=== PATIENT | female | born 1990 | race Caucasian/White ===

== ENCOUNTER 2017-05-20 18:03 | Emergency (ER) | payer BC, MEDICAID ==
[~2017-05-20] VITALS: Ht 162.6 cm; Wt 59.1 kg
[~2017-05-20 18:03] MED LIST: ACET50TA PO; AZITHROMYCIN; CEFT500T3 PO; IBUP80TA PO; RHINSUS; TUMS1000 PO; VITAPRTA PO; ZANTTAB9 PO
--- NOTE | 2017-05-20 21:30 | REPUSA ---
Clinical history: Pain. Findings: Real-time transabdominal and transvaginal ultrasound images of the pelvis were obtained. Th ere is a single live intrauterine . The crown rump length measures 3.2 cm. heart rate measures 168 bpm. There is no evidence of a subchorionic hemorrhage. The uterus and adnexa appear jess ssly unremarkable. There is no evidence of free fluid. Impression: Single live intrauterine measuring 10 weeks 1 day, with a heart rate of 1 68 bpm. Estimated due date is 12/15/2017.
[2017-05-20 22:35] VITALS: BP 120/81
== END 2017-05-20 22:36 | disposition home or self-care (01) ==
LOC: M ED 18:03
DX: O26.891 Other specified pregnancy related conditions, first trimester (principal); R10.9 Unspecified abdominal pain; O99.511 Diseases of the respiratory system complicating pregnancy, first trimester; J45.909 Unspecified asthma, uncomplicated; Z3A.10 10 weeks gestation of pregnancy; Z88.2 Allergy status to sulfonamides; Z88.8 Allergy status to other drugs, medicaments and biological substances; Z88.0 Allergy status to penicillin; Z87.19 Personal history of other diseases of the digestive system

== ENCOUNTER → 2018-05-13 | Outpatient (CLI) | payer OTHER | LOC: M WHC 11:07 | DX: Z34.90 Encounter for supervision of normal pregnancy, unspecified, unspecified trimester (principal); Z36.89 Encounter for other specified antenatal screening; Z3A.12 12 weeks gestation of pregnancy ==

== ENCOUNTER → 2018-07-03 | Outpatient (CLI) | payer OTHER | LOC: M WHC 12:49 | DX: Z33.1 Pregnant state, incidental (principal); Z3A.19 19 weeks gestation of pregnancy | CPT/HCPCS: 76811 ==

== ENCOUNTER → 2018-08-07 | Outpatient (CLI) | payer OTHER ==
[~2018-08-07] MED LIST changes: -ACET50TA PO; +MAPA500T17 PO
--- NOTE | 2018-08-08 03:10 | REP ---
Clinical: Anatomical evaluation. Comparison: 07/03/2018 . Findings: Examination demonstrates a single live intrauterine in cephalic presentation. motion is identified by technologist. Placenta is noted anterior and grade grade zero without evidence for placenta previa or abruption. Amniotic fluid volume is normal. Cervix measures 5.6 cm in length and appears closed. No evidence for nuchal cord. Gestational age by LMP 24 weeks 6 days with BROOKS four 12/25 . Gestational age by current measurements 24 weeks 3 days with BROOKS 11/24/2018 . FHR equals 150 beats per minute. Estimated weight 743 grams ( 42nd percentile). Anatomical assessment demonstrates normal structures including four-chamber heart/ventricular outflow tracts, stomach, kidneys/bladder, and spine. Impression: Single live intrauterine in cephalic presentation demonstrating appropriate interval growth. In conjunction with prior examination anatomical assessment is complete and normal. Electronically Signed by Ambrosio Liriano MD 08/08/2018 03:02 A
== END ==
LOC: M WHC 09:25
PROVIDERS: ATTEND Nurse Practitioner Women's Health
DX: Z34.92 Encounter for supervision of normal pregnancy, unspecified, second trimester (principal); Z3A.24 24 weeks gestation of pregnancy

== ENCOUNTER → 2018-10-28 | Outpatient (REF) | payer OTHER ==
[~2018-10-28] MED LIST changes: -MAPA500T17 PO; +MAPA500T2 PO
== END ==
LOC: M LAB REF 14:13
PROVIDERS: ATTEND Nurse Practitioner Women's Health
DX: Z34.83 Encounter for supervision of other normal pregnancy, third trimester (principal); Z3A.00 Weeks of gestation of pregnancy not specified

== ENCOUNTER → 2021-06-28 | Outpatient (CLI) | payer OTHER ==
[~2021-06-28] MED LIST changes: +VITMTA PO; +ZOLO100T PO
== END ==
LOC: M LABSMTC 11:49
PROVIDERS: ATTEND Anesthesiology
DX: Z01.818 Encounter for other preprocedural examination (principal); Z11.52 Encounter for screening for COVID-19

== ENCOUNTER 2021-06-29 11:40 | Day surgery (SDC) | payer OTHER ==
[~2021-06-29] VITALS: Ht 165.1 cm; Wt 70.7 kg
[~2021-06-29 11:40] MED LIST changes: +LIDOCAINE 1% MDV 20ML VIAL SQ PRN; +LR 1,000 ML IV ONE
--- OUTSIDE RECORDS SUMMARY | 2021-06-29 11:51 | CCD | Continuity of Care Document ---
Author Author Silvia Alan Organization Unknown Address Unknown Phone [phone] Problems Description No Information Available Social History Type Date Description Comments Sex Unknown Tobacco Use Start: Unknown Never Smoked Cigarettes ETOH Use Non-smoker, Occasional Drinker, Non-drug User Tobacco Use Start: Unknown Patient has never smoked Smoking Status Reviewed: 02/24/21 Patient has never smoked Exercise Type/Frequency Does not exercise Allergies and adverse reactions Active Allergies Criticality Reaction | Severity Comments Date Loracarbef Unable to assess criticality 02/24/2021 Bactrim Unable to assess criticality 02/24/2021 Augmentin Unable to assess criticality 02/24/2021 Latex Unable to assess criticality 02/24/2021 Medications Active Medications SIG Qnty Indications Ordering Provide r Date Sertraline HCL 100mg Tablets Daily Unknown Immunizations Description No Information Available Vital Signs Date Vital Result Comment 02/24/2021 8:47am BP Systolic 112 mmHg BP Diastolic 68 mmHg Height 65 inches 5'5" Weight 151.00 lb BMI (Body Mass Index) 25.1 kg/m2 BSA (Body Surface Area) 1.76 m2 Results Test Acquired Date Facility Test Result H/L Range Note Thinprep W/Reflex HR HPV If Asc-US 02/24/2021 [facility] TP Reflex HPV ASCUS Normal Normal 1 TP Reflex HPV ASCUS SEE IMAGE 1 SPECIME N PART A. 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 SPECIMEN ADEQUACY:Satisfactory for evaluation. Endocervical/transformation zone component present. Procedures Date Code Description Status 06/19/2021 64135 Endometrial Biopsy W/O Cervical Dilation Completed 03/16/2021 51295 Tubal Ligation (Laparoscopic) W/ Fulguration Completed 03/16/2021 05216 Hysteroscopy, With Endometrial A blation (Any Method) Completed 03/16/2021 78726 Remove Contraceptive Capsule Com pleted 03/08/2021 68904 Endometrial Biopsy W/O Cervical Dilation Completed 02/24/2021 36579 Office/Outpatient New Moderate M DM 45-59 Minutes Completed Medical Devices Description No Information Available Encounters Type Date Location Provider Dx Diagnosis Office Visit 02/24/2021 9:15a [facility] [employer] Rosana Mireles MD N9 2.1 Excessive and frequent menstruation with irregular cycle N94.4 Primary dysmenorrhea Z30.8 Encounter for other contrace ptive management Assessments Date Code Description Provider 02/24/2021 N92.1 Excessive and frequent menstruat ion with irregular cycle Rosana Mireles MD 02/24/2021 N94.4 Primary dysmenorrhea Isis Mireles MD 02/24/2021 Z30.8 Encounter for other contraceptiv e management Rosana Mireles MD Plan of Treatment Future Appointment(s):* 03/16/2022 8:45 am - Rosana Mireles MD at [facility] 02/24/2021 - Rosana Mireles MD* N92.1 Excessive and frequent menstruation with irregular cycle * N94.4 Primary dysmenorrhea * Z30.8 Encounter for other contraceptive management Functional Status Description No Information Available Mental Status Description No Information Available Referrals Description No Information Available
--- OUTSIDE RECORDS SUMMARY | 2021-06-29 11:51 | CCD | Continuity of Care Document ---
Author Author Silvia VERDE MD Organization Unknown Address [address] [place] [id number] Phone [phone] Problems Description No Information Available Social History Type Date Description Comments Sex Unknown Tobacco Use Start: Unknown Never Smoked Cigarettes ETOH Use Non-smoker, Occasional Drinker, Non-drug User Tobacco Use Start: Unknown Patient has never smoked Smoking Status Reviewed: 06/19/21 Patient has never smoked Exercise Type/Frequency Does [...] N PART A. Cervical, Endocervical, ThinPrep Pap ([facility] Tender) CYTOLOGY HX-------- Date of Last Menstrual Period: 02/08/21 FINAL DIAGNOSIS---- INTERPRETATION: Negative for Intraepithelial Lesion or Malignancy. SPECIMEN ADEQUACY:Satisfactory for evaluation. Endocervical/transformation zone component present. Procedures Date Code Description Status 06/19/2021 19062 Endometrial Biopsy W/O Cervical Dilation Completed 03/16/2021 68949 Tubal Ligation (Laparoscopic) W/ Fulguration Completed 03/16/2021 52863 Hysteroscopy, With Endometrial A blation (Any Method) Completed 03/16/2021 35101 Remove Contraceptive Capsule Com pleted 03/08/2021 79775 Endometrial Biopsy W/O Cervical Dilation Completed 02/24/2021 58816 Office/Outpatient New Moderate M DM 45-59 Minutes Completed Medical Devices Description No Information Available Encounters Type Date Location Provider Dx Diagnosis Office Visit 02/24/2021 9:15a [facility] [place] Rosana Verde MD N9 2.1 Excessive and frequent menstruation with irregular cycle N94.4 Primary dysmenorrhea Z30.8 Encounter for other contrace ptive management Assessments Date Code Description Provider 06/19/2021 N92.1 Excessive and frequent menstruat ion with irregular cycle Rosana Verde MD 06/19/2021 Z32.02 Encounter for test, re sult negative Nurse Schedule 06/19/2021 N94.4 Primary dysmenorrhea Isis Verde MD 02/24/2021 N92.1 Excessive and frequent menstruat ion with irregular cycle Rosana Verde MD 02/24/2021 N94.4 Primary dysmenorrhea Isis Verde MD 02/24/2021 Z30.8 Encounter for other contraceptiv e management Rosana Verde MD Plan of Treatment Future Appointment(s):* 06/29/2021 11:00 am - Rosana Verde MD at [facility] [place] * 2021 11:30 am - Rosana Verde MD at [facility] [place] * 03/16/2022 8:45 am - Rosana Verde MD at [facility] [place] 06/19/2021 - Rosana Verde MD* N92.1 Excessive and frequent menstruation with irregular cycle* New Labs:* Gynecologic Biopsy, Ordered: 06/19/21 * N94.4 Primary dysmenorrhea Functional Status Description No Information Available Mental Status Description No Information Available Referrals Description No Information Available
--- OUTSIDE RECORDS SUMMARY | 2021-06-29 11:51 | CCD ---
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 Name Role Phone Yulia VERDE MD Unavailable Unavailable Yulia VERDE MD Unavailable Unavailable Yulia VERDE MD Unavailable Unavailable Yulia VERDE MD Unavailable Unavailable Yulia VERDE MD Unavailable Unavailable Yulia VERDE MD Unavailable Unavailable Yulia VERDE MD Unavailable Unavailable Yulia VERDE MD Unavailable Unavailable Yulia VERDE MD Unavailable Unavailable Yulia VERDE MD Unavailable Unavailable Yulia VERDE MD Unavailable Unavailable Yulia VERDE MD Unavailable Unavailable Yulia VERDE MD Unavailable Unavailable Yulia VERDE MD Unavailable Unavailable Yulia VERDE MD Unavailable Unavailable Yulia VERDE MD Unavailable Unavailable Yulia VERDE MD Unavailable Unavailable VERDE, L BROOKS SIDHU Unavailable Unavailable VERDE, L BROOKS SIDHU Unavailable Unavailable VERDE, L BROOKS SIDHU Unavailable Unavailable VERDE, L BROOKS SIDHU Unavailable Unavailable VERDE, L BROOKS SIDHU Unavailable Unavailable VERDE, L BROOKS SIDHU Unavailable Unavailable VERDE, L BROOKS SIDHU Unavailable Unavailable VERDE, L BROOKS SIDHU Unavailable Unavailable VERDE, L BROOKS SIDHU Unavailable Unavailable VERDE, L BROOKS SIDHU Unavailable Unavailable VERDE, L BROOKS SIDHU Unavailable Unavailable VERDE, L BROOKS SIDHU Unavailable Unavailable VERDE, L BROOKS SIDHU Unavailable Unavailable VERDE, L BROOKS SIDHU Unavailable Unavailable VERDE, L BROOKS SIDHU Unavailable Unavailable VERDE, L BROOKS SIDHU Unavailable Unavailable VERDE, L BROOKS SIDHU Unavailable Unavailable VERDE, L BROOKS SIDHU Unavailable Unavailable VERDE, L BROOKS SIDHU Unavailable Unavailable VERDE, L BROOKS SIDHU Unavailable Unavailable VERDE, L BROOKS SIDHU Unavailable Unavailable VERDE, L BROOKS SIDHU Unavailable Unavailable VERDE, L BROOKS SIDHU Unavailable Unavailable VERDE, L BROOKS SIDHU Unavailable Unavailable VERDE, L BROOKS SIDHU Unavailable Unavailable VERDE, L BROOKS SIDHU Unavailable Unavailable VERDE, L BROOKS SIDHU Unavailable Unavailable VERDE, L BROOKS SIDHU Unavailable Unavailable Bartoszewski, Mayra Ara MS, RPA-C Unavailable Unav ailable Bartoszewski, Mayra Ara MS, RPA-C Unavailable Unav ailable Bartoszewski, Mayra Ara MS, RPA-C Unavailable Unav ailable Bartoszewski, Mayra Ara MS, RPA-C Unavailable Unav ailable Bartoszewski, Mayra Ara MS, RPA-C Unavailable Unav ailable Bartoszewski, Mayra Ara MS, RPA-C Unavailable Unav ailable Bartoszewski, Mayra Ara MS, RPA-C Unavailable Unav ailable Bartoszewski, Mayra Ara MS, RPA-C Unavailable Unav ailable Bartoszewski, Mayra Ara MS, RPA-C Unavailable Unav ailable Bartoszewski, Mayra Ara MS, RPA-C Unavailable Unav ailable Bartoszewski, Mayra Ara MS, RPA-C Unavailable Unav ailable Bartoszewski, Mayra Ara MS, RPA-C Unavailable Unav ailable Bartoszewski, Mayra Ara MS, RPA-C Unavailable Unav ailable Bartoszewski, Mayra Ara MS, RPA-C Unavailable Unav ailable Bartoszewski, Mayra Ara MS, RPA-C Unavailable Unav ailable Bartoszewski, Mayra Ara MS, RPA-C Unavailable Unav ailable Bartoszewski, Mayra Ara MS, RPA-C Unavailable Unav ailable Bartoszewski, Mayra Ara MS, RPA-C Unavailable Unav ailable Bartoszewski, Mayra Ara MS, RPA-C Unavailable Unav ailable Bartoszewski, Mayra Ara MS, RPA-C Unavailable Unav ailable Bartoszewski, Mayra Ara MS, RPA-C Unavailable Unav ailable Bartoszewski, Mayra Ara MS, RPA-C Unavailable Unav ailable Bartoszewski, Mayra Ara MS, RPA-C Unavailable Unav ailable Bartoszewski, Mayra Ara MS, RPA-C Unavailable Unav ailable Bartoszewski, Mayra Ara MS, RPA-C Unavailable Unav ailable Bartoszewski, Mayra Ara MS, RPA-C Unavailable Unav ailable Bartoszewski, Mayra Ara MS, RPA-C Unavailable Unav ailable Bartoszewski, Mayra Ara MS, RPA-C Unavailable Unav ailable Bartoszewski, Mayra Ara MS, RPA-C Unavailable Unav ailable Bartoszewski, Mayra Ara MS, RPA-C Unavailable Unav ailable Bartoszewski, Mayra Ara MS, RPA-C Unavailable Unav ailable Bartoszewski, Mayra Ara MS, RPA-C Unavailable Unav ailable Bartoszewski, Mayra Ara MS, RPA-C Unavailable Unav ailable Bartoszewski, Mayra Ara MS, RPA-C Unavailable Unav ailable Bartoszewski, Mayra Ara MS, RPA-C Unavailable Unav ailable Bartoszewski, Mayra Ara MS, RPA-C Unavailable Unav ailable Bartoszewski, Mayra Ara MS, RPA-C Unavailable Unav ailable Bartoszewski, Mayra Ara MS, RPA-C Unavailable Unav ailable Bartoszewski, Mayra Ara MS, RPA-C Unavailable Unav ailable Bartoszewski, Mayra Ara MS, RPA-C Unavailable Unav ailable Bartoszewski, Mayra Ara MS, RPA-C Unavailable Unav ailable Bartoszewski, Mayra Ara MS, RPA-C Unavailable Unav ailable Bartoszewski, Mayra Ara MS, RPA-C Unavailable Unav ailable Bartoszewski, Mayra Ara MS, RPA-C Unavailable Unav ailable Bartoszewski, Mayra Ara MS, RPA-C Unavailable Unav ailable Bartoszewski, Mayra Ara MS, RPA-C Unavailable Unav ailable Bartoszewski, Mayra Ara MS, RPA-C Unavailable Unav ailable Bartoszewski, Mayra Ara MS, RPA-C Unavailable Unav ailable Bartoszewski, Mayra Ara MS, RPA-C Unavailable Unav ailable Bartoszewski, Mayra Ara MS, RPA-C Unavailable Unav ailable Bartoszewski, Mayra Ara MS, RPA-C Unavailable Unav ailable Bartoszewski, Mayra Ara MS, RPA-C Unavailable Unav ailable Bartoszewski, Mayra Ara MS, RPA-C Unavailable Unav ailable Bartoszewski, Mayra Ara MS, RPA-C Unavailable Unav ailable Bartoszewski, Mayra Ara MS, RPA-C Unavailable Unav ailable Bartoszewski, Mayra Ara MS, RPA-C Unavailable Unav ailable Bartoszewski, Mayra Ara MS, RPA-C Unavailable Unav ailable Bartoszewski, Mayra Ara MS, RPA-C Unavailable Unav ailable Bartoszewski, Mayra Ara MS, RPA-C Unavailable Unav ailable Bartoszewski, Mayra Ara MS, RPA-C Unavailable Unav ailable OBEN T MEHDI SIDHU Unavailable Unavailable OBAPARNA T MEHDI SIDHU Unavailable Unavailable OBYoung BRAUN MD Unavailable Unavailable OBYoung BRAUN MD Unavailable Unavailable OBEN, T MEHDI MD Unavailable Unavailable OBEN, T MEHDI MD Unavailable Unavailable OBEN, T MEHDI MD Unavailable Unavailable OBEN, T MEHDI MD Unavailable Unavailable OBEN, T MEHDI MD Unavailable Unavailable OBEN, T MEHDI MD Unavailable Unavailable OBEN, T MEHDI MD Unavailable Unavailable OBEN, T MEHDI MD Unavailable Unavailable OBEN, T MEHDI MD Unavailable Unavailable OBEN, T MEHDI MD Unavailable Unavailable OBEN, T MEHDI MD Unavailable Unavailable OBEN, T MEHDI MD Unavailable Unavailable OBEN, T MEHDI MD Unavailable Unavailable OBEN, T MEHDI MD Unavailable Unavailable OBEN, T MEHDI MD Unavailable Unavailable OBEN, T MEHDI MD Unavailable Unavailable OBEN, T MEHDI MD Unavailable Unavailable OBEN, T MEHDI MD Unavailable Unavailable OBEN, T MEHDI MD Unavailable Unavailable OBEN, T MEHDI MD Unavailable Unavailable OBEN, T MEHDI MD Unavailable Unavailable OBEN, T MEHDI MD Unavailable Unavailable OBEN, T MEHDI MD Unavailable Unavailable OBEN, T MEHDI MD Unavailable Unavailable OBEN, T MEHDI MD Unavailable Unavailable OBEN, T MEHDI MD Unavailable Unavailable OBEN, T MEHDI MD Unavailable Unavailable OBEN, T MEHDI MD Unavailable Unavailable OBEN, T MEHDI MD Unavailable Unavailable OBEN, T MEHDI MD Unavailable Unavailable OBEN, T MEHDI MD Unavailable Unavailable OBEN, T MEHDI MD Unavailable Unavailable OBEN, T MHEDI MD Unavailable Unavailable OBEN, T MEHDI MD Unavailable Unavailable OBEN, T MEHDI MD Unavailable Unavailable OBEN, T MEHDI MD Unavailable Unavailable OBEN, T MEHDI MD Unavailable Unavailable OBEN, T MEHDI MD Unavailable Unavailable OBEN, T MEHDI MD Unavailable Unavailable OBEN, T MEHDI MD Unavailable Unavailable OBEN, T MEHDI MD Unavailable Unavailable OBEN, T MEHDI MD Unavailable Unavailable OBEN, T MEHDI MD Unavailable Unavailable OBEN, T MEHDI MD Unavailable Unavailable OBEN, T MEHDI MD Unavailable Unavailable OBEN, T MEHDI MD Unavailable Unavailable OBEN, T MEHDI MD Unavailable Unavailable OBEN, T MEHDI MD Unavailable Unavailable OBEN, T MEHDI MD Unavailable Unavailable OBEN, T MEHDI MD Unavailable Unavailable OBEN, T MEHDI MD Unavailable Unavailable OBEN, T MEHDI MD Unavailable Unavailable OBEN, T MEHDI MD Unavailable Unavailable OBEN, T MEHDI MD Unavailable Unavailable Mannie Fleming MD Unavailable Unavailable Mannie Fleming MD Unavailable Unavailable Mannie Fleming MD Unavailable Unavailable Mannie Fleming MD Unavailable Unavailable Mannie Fleming MD Unavailable Unavailable Mannie Fleming MD Unavailable Unavailable Mannie Fleming MD Unavailable Unavailable Mannie Fleming MD Unavailable Unavailable Mannie Fleming MD Unavailable Unavailable Mannie Fleming MD Unavailable Unavailable Mannie Fleming MD Unavailable Unavailable Mannie Fleming MD Unavailable Unavailable Mannie Fleming MD Unavailable Unavailable Mannie Fleming MD Unavailable Unavailable Mannie Fleming MD Unavailable Unavailable Mannie Fleming MD Unavailable Unavailable Mannie Fleming MD Unavailable Unavailable Mannie Fleming MD Unavailable Unavailable Mannie Fleming MD Unavailable Unavailable Mannie Fleming MD Unavailable Unavailable Mannie Fleming MD Unavailable Unavailable Mannie Fleming MD Unavailable Unavailable Mannie Fleming MD Unavailable Unavailable Mannie Fleming MD Unavailable Unavailable Mannie Fleming MD Unavailable Unavailable Mannie Fleming MD Unavailable Unavailable Mannie Fleming MD Unavailable Unavailable Mannie Fleming MD Unavailable Unavailable Mannie Fleming MD Unavailable Unavailable Mannie Fleming MD Unavailable Unavailable Mannie Fleming MD Unavailable Unavailable Mannie Fleming MD Unavailable Unavailable Mannie Fleming MD Unavailable Unavailable Mannie Fleming MD Unavailable Unavailable Mannie Fleming MD Unavailable Unavailable Mannie Fleming MD Unavailable Unavailable Mannie Fleming MD Unavailable Unavailable Mannie Fleming MD Unavailable Unavailable Mannie Fleming MD Unavailable Unavailable Mannie Fleming MD Unavailable Unavailable Mannie Fleming MD Unavailable Unavailable Mannie Fleming MD Unavailable Unavailable Mannie Fleming MD Unavailable Unavailable Mannie Fleming MD Unavailable Unavailable Mannie Fleming MD Unavailable Unavailable Mannie Fleming MD Unavailable Unavailable Mannie Fleming MD Unavailable Unavailable Mannie Fleming MD Unavailable Unavailable Mannie Fleming MD Unavailable Unavailable Mannie Fleming MD Unavailable Unavailable Mannie Fleming MD Unavailable Unavailable Mannie Fleming MD Unavailable Unavailable Mannie Fleming MD Unavailable Unavailable Mannie Fleming MD Unavailable Unavailable Mannie Fleming MD Unavailable Unavailable Mannie Fleming MD Unavailable Unavailable Mannie Fleming MD Unavailable Unavailable Mannie Fleming MD Unavailable Unavailable Mannie Fleming MD Unavailable Unavailable Mannie Fleming MD Unavailable Unavailable Mannie Fleming MD Unavailable Unavailable Mannie Fleming MD Unavailable Unavailable Mannie Fleming MD Unavailable Unavailable Mannie Fleming MD Unavailable Unavailable Mannie Fleming MD Unavailable Unavailable Mannie Fleming MD Unavailable Unavailable Mannie Fleming MD Unavailable Unavailable Mannie Fleming MD Unavailable Unavailable Mannie Fleming MD Unavailable Unavailable Mannie Fleming MD Unavailable Unavailable Mannie Fleming MD Unavailable Unavailable Mannie Fleming MD Unavailable Unavailable Mannie Fleming MD Unavailable Unavailable Mannie Fleming MD Unavailable Unavailable Re-disclosure Warning The records that you are about to access may contain information from federally-assisted alcohol or drug abuse programs. If such information is present, then the following federally mandated warning applies: This information has been disclosed to you from records protected by federal confidentiality rules (42 CFR part 2). The federal rules prohibit you from making any further disclosure of this information unless further disclosure is expressly permitted by the written consent of the person to whom it pertains or as otherwise permitted by 42 CFR part 2. A general authorization for the release of medical or other information is NOT sufficient for this purpose. The Federal rules restrict any use of the information to criminally investigate or prosecute any alcohol or drug abuse patient.The records that you are about to access may contain highly sensitive health information, the redisclosure of which is protected by Article 27-F of the [facility] Public Health law. If you continue you may have access to information: Regarding HIV / AIDS; Provided by facilities licensed or operated by the [facility] Office of Mental Health; or Provided by the [facility] Office for People With Developmental Disabilities. If such information is present, then the following [facility] mandated warning applies: This information has been disclosed to you from confidential records which are protected by state law. State law prohibits you from making any further disclosure of this information without the specific written consent of the person to whom it pertains, or as otherwise permitted by law. Any unauthorized further disclosure in violation of state law may result in a fine or assisted sentence or both. A general authorization for the release of medical or other information is NOT sufficient authorization for further disc losure. Allergies and Adverse Reactions Type Description Substance Reaction Status Data Source(s ) Food allergy SEAFOOD SEAFOOD HIVES [facility] Propensity to adverse reactions AUGMENTIN AUGMENTIN Rash [facility] Propensity to adverse reactions LATEX LATEX Rash [facility] Drug allergy LORACARBEF LORACARBEF Rash [facility] Drug allergy SULFAMETHOXAZOLE SULFAMETHOXAZOLE Rash [facility] Family History Family Member Name Family Member Gender Family Member Status Date o f Status Description Data Source(s) Unknown Unknown Problem [facility] ([facility]) Encounters Encounter Providers Location Date Indications Data Source(s ) Outpatient Attender: BROOKS VERDE MD [employer] 04/2021 09:15:00 AM EDT [facility] ([facility] [employer]) Outpatient [address] [address] 02/09/2021 12:00:00 AM EDT eCW1 ([facility]) Unknown [address] [address] 11/11/2020 12:00:00 AM EDT eCW1 ([facility]) Outpatient Attender: MEHDI SAUER MDConsultant: Mike Fleming MD 05/17/2020 10:43:00 AM EDT - 05/17/2020 10:43:00 AM EDT [facility] Office Visit Attender: Ara Whiting MS, RPA-C Family P nhung 05/17/2020 09:15:00 AM EDT [facility] ([facility]) Outpatient Attender: Ara Edwards i, MS, RPA-CReferrer: Ara Whiting MS, RPA-CConsultant: Mike Fleming MD 05/03/2020 09:45:00 AM EDT - 05/03/2020 09:55:00 AM EDT [facility] Outpatient Attender: MEHDI SAUER MDConsultant: Mike Fleming MD 07/02/2019 08:24:40 AM EST [facility] Medications Medication Brand Name Start Date Product Form Dose Route Admi nistrative Instructions Pharmacy Instructions Status Indications Reaction Description Data Source(s) potassium citrate 15 MEQ Extended Release Oral Tablet Potass ium Citrate ER 05/17/2020 12:00:00 AM EDT ORAL active MED[facility] ([facility]) Insurance Providers Payer name Policy type / Coverage type Policy ID Covered constitution party ID Covered constitution party's relationship to schwartz Policy Schwartz Plan Information EXCELLUS H [id number] Child [id number] EXCELLUS H [id number] Child [id number] MEDICAID M [id number] Self [id number] MEDICAID M [id number] Self [id number] [facility] [id number] [facility] [id number] ANSI-Commercial [id number] ANSI-Medicaid [id number] ANSI-Commercial [id number] ANSI-Medicaid [id number] ANSI-Commercial [id number] ANSI-Commercial [id number] ANSI-Commercial [id number] ANSI-Commercial [id number] ANSI-Medicaid [id number] ANSI-Commercial [id number] ANSI-Medicaid [id number] ANSI-Commercial [id number] ANSI-Commercial [id number] ANSI-Commercial [id number] ANSI-Medicaid [id number] [facility] -I/P [id number] 18 [id number] ANSI-Commercial [id number] ANSI-Medicaid [id number] ANSI-Commercial [id number] ANSI-Commercial [id number] ANSI-Medicaid [id number] ANSI-Commercial [id number] [facility] O [id number] S [id number] ANSI-Medicaid [id number] ANSI-Commercial [id number] ANSI-Commercial [id number] HEA [id number] SP [id number] HEA [id number] SP [id number] [place] PPO 302/307 [id number] MO2 [id number] MEDICAID [id number] SP [id number] [place] PPO 302/307 [id number] MO2 [id number] [place] PPO 302/307 [id number] MO2 [id number] [place] PPO 302/307 [id number] MO2 [id number] [place] PPO 302/307 [id number] MO2 [id number] BLUE CROSS O [id number] M [id number] EXCELLUS BCBS B [id number] C YND BLUE CROSS O [id number] M [id number] EXCELLUS BCBS B [id number] C [place] Medicaid [place] Medigap Part B [id number] Self BC/BS Of [place] Commercial [id number] Family Depende nt BLUE CROSS BLUE SHIELD-O/P [id number] [facility] [id number] SP [id number] [facility] [place] [id number] [facility] [id number] 18 [id number] [facility] -PHYSICIAN [id number] 18 [id number] [place] [id number] CHILD VYS Problems, Conditions, and Diagnoses Code Display Name Description Problem Type Effective Dates Data Source(s) N200 Calculus of kidney Calculus of kidney Diagnosis 09:45:00 AM EDT [facility] Surgeries/Procedures Procedure Description Date Indications Data Source(s) Endometrial Biopsy W/O Cervical Dilation 06/19/2021 12 :00:00 AM EDT [facility] ([facility] [employer]) Remove Contraceptive Capsule 03/16/2021 12:00:00 AM ED T [facility] ([facility] [employer]) Hysteroscopy, With Endometrial Ablation (Any Method) 03/16/2021 12:00:00 AM EDT [facility] ([facility] [employer]) Tubal Ligation (Laparoscopic) W/Fulguration 03/16/2021 12:00:00 AM EDT [facility] ([facility] [employer]) Endometrial Biopsy W/O Cervical Dilation 03/08/2021 12 :00:00 AM EDT [facility] ([facility] [employer]) OFFICE OUTPATIENT NEW 45 MINUTES 02/24/2021 12:00:00 A M EDT [facility] ([facility] [employer]) Results ID Date Data Source [id number] 02/24/2021 12:00:00 PM EDT [facility] ([facility] [employer]) Name Value Range Interpretation Code Description Data Hilary rce(s) Supporting Document(s) TP Reflex HPV ASCUS Laboratory test result [facility] ([facility] [employer] TE[employer]) SPECIMEN PART------ A. Cervical, Endocervical, ThinPrep Pap ([employer]) CYTOLOGY HX-------- Date of Last Menstrual Period: 02/08/21 FINAL DIAGNOSIS---- INTERPRETATION: Negative for Intraepithelial Lesion or Malignancy. SPECIMEN ADEQUACY:Satisfactory for evaluation. Endocervical/transformation zone component present. TP Reflex HPV ASCUS Laboratory test result [facility] ([facility] [employer] TE[employer]) ID Date Data Source [id number] 05/17/2020 10:55:00 AM EDT [facility] ([facility]) Name Value Range Interpretation Code Description Data Hilary rce(s) Supporting Document(s) Abdomen XR 1 View Laboratory test result [facility] ([facility]) ID Date Data Source [id number] 05/16/2020 12:20:00 PM EDT [facility] Name Value Range Interpretation Code Description Data Hilary rce(s) Supporting Document(s) TOTAL VOLUME: 1200 ML [facility] spital [id number] Calcium [Mass/volume] in 24 hour Urine 18.2 mg/dL Not Estab. [facility] Calcium [Mass/time] in 24 hour Urine 218.4 mg/24 hr 100.0-300.0 [facility] Sodium [Moles/volume] in 24 hour Urine 72 mmol/L Not Estab. [facility] Sodium [Moles/time] in 24 hour Urine 86 mmol/24hr 39-258 [facility] Phosphate [Mass/volume] in 24 hour Urine 71.3 mg/dL Not Estab. [facility] Phosphate [Mass/time] in 24 hour Urine 855.6 mg/24 hr 400.0-1300.0 [facility] Urate [Mass/volume] in 24 hour Urine 44.9 mg/dL Not Estab. [facility] Urate [Mass/time] in 24 hour Urine 539 mg/24 hr 250-750 [facility] Potassium [Moles/volume] in Urine 42.9 mmol/L Not Estab. [facility] Potassium [Moles/time] in 24 hour Urine 51.5 mmol/24hr 25.0-125.0 [facility] Chloride [Moles/volume] in 24 hour Urine 76 mmol/L Not Estab. [facility] Chloride [Moles/time] in 24 hour Urine 91 mmol/24hr 110-250 L [facility] Citrate [Mass/volume] in 24 hour Urine 410 mg/L Not Estab. [facility] Citrate [Mass/time] in 24 hour Urine 492 mg/24 hr 320-1240 [facility] Oxalate [Mass/volume] in Urine 25 mg/L Not Estab. [facility] Oxalate [Mass/time] in 24 hour Urine 30 mg/24 hr 4-31 [facility] Magnesium [Mass/volume] in Urine 9.5 mg/dL Not Estab. [facility] Magnesium [Mass/time] in 24 hour Urine 114 mg/24 hr 12-293 [facility] Sulfate [Moles/volume] in 24 hour Urine 25 mEq/L Not Estab. [facility] Sulfate [Moles/time] in 24 hour Urine 30 mEq/24 hr 0-30 [facility] Osmolality of Urine 621 mOsmol/kg 300-900 [facility] Creatinine [Mass/volume] in 24 hour Urine 102.5 mg/dL Not Estab. [facility] Creatinine [Mass/time] in 24 hour Urine 1230.0 mg/24 hr 800.0-1800.0 [facility] pH of 24 hour Urine 5.8 NA [facility] Ammonia [Mass/volume] in 24 hour Urine 62886 ug/dL Not Estab. [facility] Ammonia [Moles/time] in 24 hour Urine 43 mEq/24 hr Not Estab. [facility] Calcium oxalate monohydrate crystals [Pr esence] in Stone by Infrared spectroscopy 9.43 ratio 0.00-6.00 H [facility] Calcium hydrogen phosphate dihydrate cry stals [Presence] in Urine sediment by Light microscopy 1.79 [facility].00[facility] S[facility] [Presence] in Stone by Infrared spectr oscopy 2.97 ratio 0.00-4.00 [facility] Urate dihydrate crystals [Presence] in Stone by Infrar ed spectroscopy 2.63 ratio 0.00-1.20 H [facility] Triple phosphate crystals [type] in Stone by Light microscop y 0.03 ratio 0.00-1.00 [facility] Graph WILL FOLLOW [facility] ital Review: WILL FOLLOW [facility] Laboratory comment [Text] in Report Narrative COMMENT [facility] Graphic analysis of results will follow via computer, mail, orcourier delivery. Cystine [Mass/volume] in 24 hour Urine 6.55 mg/L Not Estab. [facility] Cystine [Mass/time] in 24 hour Urine 7.86 mg/24 hr 10.00-100.00 L [facility] ID Date Data Source [id number] 04/29/2020 01:18:00 PM EDT [facility] ([facility]) Name Value Range Interpretation Code Description Data Hilary rce(s) Supporting Document(s) Misc Test - Put Test In Order Laboratory test result [facility] ([facility]) Procedure Social History Code Duration Value Status Description Data Source(s ) Smoking 06/19/2021 12:00:00 AM EDT Patient has never smoked co mpleted Patient has never smoked [facility] ([employer]) Smoking 02/09/2021 12:00:00 AM EDT Never Smoker completed Never S herminia eCW1 ([facility]) Vital Signs ID Date Data Source UNK Name Value Range Interpretation Code Description Data Source(s) Systolic blood pressure 112 mm[Hg] 112 mm[Hg] M EDENT ([employer]) Diastolic blood pressure 68 mm[Hg] 68 mm[Hg] [facility] ([employer]) Body height 65 [in_i] 65 [in_i] [facility] ([employer]) 5'5" Body weight 151.00 [lb_av] 151.00 [lb_av] MEDEN T ([employer]) Body mass index (BMI) [Ratio] 25.1 kg/m2 25.1 k g/m2 [facility] ([employer]) Body surface area Derived from formula 1.76 m2 1.76 m2 [facility] ([employer]) Body weight 155 [lb_av] 155 [lb_av] eCW1 ([facility]) Body height [in_i] eCW1 ([facility]) Body mass index (BMI) [Ratio] 25.59 kg/m2 25.59 kg/m2 eCW1 ([facility]) Heart rate 70 /min 70 /min eCW1 ([facility]) Respiratory rate 18 /min 18 /min eCW1 ([facility]) Body temperature 97.8 [degF] 97.8 [degF] eCW1 ( [facility]) Systolic blood pressure 112 mm[Hg] 112 mm[Hg] e CW1 ([facility]) Diastolic blood pressure 76 mm[Hg] 76 mm[Hg] eCW1 ([facility])
--- OUTSIDE RECORDS SUMMARY | 2021-06-29 11:51 | CCD | Continuity of Care Document ---
Author Author Silvia Alan Organization Unknown Address Unknown Phone [phone] Problems Description No Information Available Social History [...] N PART A. 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 SPECIMEN ADEQUACY:Satisfactory for evaluation. Endocervical/transformation zone component present. 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 Mireles MD N9 2.1 Excessive and frequent menstruation with irregular cycle N94.4 Primary dysmenorrhea Z30.8 Encounter for other contrace ptive management Assessments Date Code Description Provider 06/19/2021 Z32.02 Encounter for test, re sult negative Rosana Mireles MD 06/19/2021 N92.1 Excessive and frequent menstruat ion with irregular cycle Rosana Mireles MD 06/19/2021 Z32.02 Encounter for test, re sult negative Nurse Schedule 06/19/2021 N94.4 Primary dysmenorrhea Isis Mireles MD 02/24/2021 N92.1 Excessive and frequent menstruat ion with irregular cycle Rosana Mireles MD 02/24/2021 N94.4 Primary dysmenorrhea Isis Mireles MD 02/24/2021 Z30.8 Encounter for other contraceptiv e management Rosana Mireles MD Plan of Treatment Future Appointment(s):* 06/29/2021 11:00 am - Rosana Mireles MD at [facility] 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
--- OUTSIDE RECORDS SUMMARY | 2021-06-29 11:51 | CCD | Continuity of Care Document ---
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 SPECIMEN ADEQUACY:Satisfactory for evaluation. Endocervical/transformation zone component present. 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 N9 2.1 Excessive and frequent menstruation with irregular cycle N94.4 Primary dysmenorrhea Z30.8 Encounter for other contrace ptive management Assessments Date Code Description Provider 06/19/2021 Z32.02 Encounter for test, re sult negative Nurse Schedule 02/24/2021 N92.1 Excessive and frequent menstruat ion with irregular cycle Rosana Verde MD 02/24/2021 N94.4 Primary dysmenorrhea Isis Verde MD 02/24/2021 Z30.8 Encounter for other contraceptiv e management Rosana Verde MD Plan of Treatment Future Appointment(s):* 03/16/2022 8:45 am - Rosana Verde MD at [facility] corporate recruiter Functional Status Description No Information Available Mental Status Description No Information Available Referrals Description No Information Available
[2021-06-29] MEDS ORDERED: LIDOCAINE 2% 100MG/5ML SDV (FOR ANES.) As Ordered ONE (12:44)
[2021-06-29] MEDS ORDERED: propofoL 200 MG/20 ML VIAL As Ordered ONE (12:44)
[2021-06-29] MEDS ORDERED: ROCURONIUM BROMIDE 50 MG/5 ML VIAL As Ordered ONE (12:44)
[2021-06-29] MEDS ORDERED: fentaNYL 100 MCG/2 ML INJECTION (J3010) As Ordered ONE (12:45)
[2021-06-29] MEDS ORDERED: MIDAZOLAM INJ 2MG/2ML VIAL (J2250 PER 1MG) As Ordered ONE (12:45)
[2021-06-29] MEDS ORDERED: SCOPOLAMINE 1MG TRANSDERMAL PATCH TOP ONE (13:00)
[2021-06-29] MEDS ORDERED: METOCLOPRAMIDE INJ 10MG/2ML VIAL (J2765 PER 1) As Ordered ONE (14:16)
[2021-06-29] MEDS ORDERED: dexameTHASONE 4 MG/ML 1ML VIAL (J1100 PER 1MG) As Ordered ONE (14:16)
[2021-06-29] MEDS ORDERED: ACETAMINOPHEN 1000MG 100ML IV BTL (OFIRMEV) (J0131 PER 10MG) As Ordered ONE (14:26)
[2021-06-29] MEDS ORDERED: ONDANSETRON 4MG/2ML VIAL As Ordered ONE (14:33)
[2021-06-29] MEDS ORDERED: SUGAMMADEX SODIUM 500 MG/5 ML VIAL (BRIDION) As Ordered ONE ×2 (14:34→14:37)
[2021-06-29] MEDS ORDERED: HYDROmorphone HCL 2 MG/ML 1ML VIAL As Ordered ONE (14:34)
[2021-06-29] MEDS ORDERED: KETOROLAC 60MG 2ML VIAL As Ordered ONE (14:34)
[2021-06-29] MEDS ORDERED: fentaNYL 100 MCG/2 ML INJECTION (J3010) IV PRN (15:40)
[2021-06-29] MEDS ORDERED: LR 1,000 ML IV SCH (15:40)
[2021-06-29] MEDS ORDERED: ONDANSETRON 4MG/2ML VIAL IV PRN (15:40)
[2021-06-29] MEDS ORDERED: oxyCODONE 5MG TAB PO PRN (15:40)
[2021-06-29] MEDS: HYDROMORPHONE HCL 0.5 MG/ 0.5 ML SYRINGE (J1170 PER 1) IV PRN ×2 (15:59→16:05)
[2021-06-29 17:21] VITALS: BP 127/73
--- NOTE | 2021-06-30 09:03 | RO ---
OPERATIVE NOTE DATE OF OPERATION: 06/29/2021 PREOPERATIVE DIAGNOSIS AND INDICATIONS FOR SURGERY: Bleeding, pain, desire for bilateral tubal ligation for permanent sterilization and for removal of her Nexplanon. POSTOPERATIVE DIAGNOSIS: Bleeding, pain, desire for bilateral tubal ligation for permanent sterilization and for removal of her Nexplanon. FINDINGS: As expected. PROCEDURE: 1. Laparoscopic bilateral tubal ligation by cautery. 2. Hysteroscopy. 3. Dilatation and curettage ablation. 4. Removal of left arm Nexplanon. SURGEON: Rosana Mireles MD GROUP HOME WORKER: None. ANESTHESIA: General endotracheal anesthesia. SPECIMENS: 1. Curettings. 2. The Nexplanon was removed intact and I do not believe it was sent as that is no longer required, but it might have been sent for ID only. BRIEF DESCRIPTION OF PROCEDURE AND FINDINGS: Silvia was brought to the operating room, where sufficient general endotracheal anesthesia was induced. She was prepped, draped, and positioned in the usual fashion. The uterus was measured as we placed the uterine manipulator and the endometrial cavity sounded so that we had a length measurement of 4 at this point, but not the width measurement. The manipulator was placed and attention was turned to the abdomen. A transverse semilunar incision was made below the umbilicus, with sharp and blunt dissection continued to the subcutaneous tissues to the level of the rectus fascia, which was grasped transversely, incised. She also had a well-developed posterior rectus sheath, which was also grasped and transversely incised. Then, under direct visualization in an open laparoscopic technique, the peritoneal cavity was entered. Prior to that of course, we had secured the rectus and the posterior sheath with 0-Vicryl sutures for the wound at the umbilicus for retention of the Sunday. Of course, after entry into the peritoneal cavity, the Sunday was placed, secured with 0-Vicryl retention sutures, and CO2 insufflation was then begun. After adequate CO2 insufflation, the peritoneal cavity was visualized. There were normal shiny peritoneal surfaces throughout. There were no excrescences, ascites, or exudate. There was a benign simple-appearing cyst on the right ovary, and really overall, a quite normal appearance in the pelvis. The tubes were visualized to the fimbriated end, readily identifiable. There were no undue adhesions to the bowel, etc. Bipolar cautery was used to cauterize the tubes in four separate locations on both sides without complications or incident. Attention was turned to the closure this aspect of the case and progression to the hysteroscopy, therefore, CO2 was allowed to escape the abdomen. The fascial wound was closed with a 0-Vicryl retention suture. The skin was closed with 3-0 Vicryl. A dry sterile dressing was then applied. Attention was turned to the hysterectomy. Working vaginally, the uterine manipulator was removed and the hysteroscope was placed and the endometrial cavity was visualized. We did have some problem with bubbling because the manipulator was a little larger than our current scopes, but other than that, no particular difficulty in visualizing a normal endometrial contour and normal growth for somebody with heavy bleeding and age 30, but not polyps, no lesions. Curettage was undertaken to smooth out that lining and confirmed that microscopically, and so that sample was sent for the pathologist. Then, the NovaSure ablative device was placed, using the NovaSure device set with length of 4, width was measured at 4.5. Then, an uncomplicated NovaSure ablation was carried out after, of course, the cavity tested, etc. After the ablation, that vaginal portion of case was completed, and attention was turned to the patient's left arm, which was repositioned and prepped at this point, following which we palpated the Nexplanon, carefully used an 11-blade to make an incision at the distal end, and using pressure on the medial aspect, elevated the Nexplanon to the wound, carefully used that 11-blade to free any scar tissues so that the Nexplanon protruded through the wound. We were able to grasp and remove it entirely. We then closed that wound with single stitch of 3-0 Vicryl with good approximation and hemostasis achieved. A dry sterile dressing was then applied and the procedure was then ended. ESTIMATED BLOOD LOSS: Maybe 25 mL in total. FLUID REPLACEMENT: Crystalloid. COMPLICATIONS: None. CONDITION AND DISPOSITION: Silvia tolerated the procedure well and was recovering in the recovery room in good condition.
== END 2021-06-29 17:43 | disposition home or self-care (01) ==
LOC: M SDC 11:40
PROVIDERS: ATTEND Obstetrics & Gynecology
DX: N93.9 Abnormal uterine and vaginal bleeding, unspecified (principal); Z30.2 Encounter for sterilization; Z30.46 Encounter for surveillance of implantable subdermal contraceptive
CPT/HCPCS: 11982; 58563; 58670; 81025; 88305; J0131; J1100; J1170; J1885; J2250; J2405; J2765; J3010

== ENCOUNTER → 2022-09-06 | Outpatient (REF) | payer OTHER ==
[~2022-09-06] MED LIST changes: -LIDOCAINE 1% MDV 20ML VIAL SQ PRN; -LR 1,000 ML IV ONE
[2022-09-06 12:37] LABS: BASO % 0.6 % (0.0-1.0); HEMATOCRIT 48.1 % (36.0-47.0); HEMOGLOBIN 15.9 g/dl (12.0-15.5); LYMPH % 41.7 % (24.0-44.0); MEAN CORPUSCULAR HGB CONC 33.1 g/dl (32.0-36.5); MEAN CORPUSCULAR VOLUME 90.8 fl (80.0-96.0); MONO # 0.6 10^3/uL (0.0-0.8); MONO % 11.6 % (2.0-8.0); NEUTROPHILS # 2.2 10^3/uL (1.5-8.5); NEUTROPHILS % 45.9 % (36.0-66.0); PLATELET COUNT, AUTOMATED 197 10^3/uL (150-450); WHITE BLOOD COUNT 4.8 10^3/uL (4.0-10.0)
[2022-09-06 12:59] LABS: ALBUMIN 4.1 G/DL (3.2-5.2); ALKALINE PHOSPHATASE 93 U/L (46-116); ALT/SGPT 22 U/L (7.0-40); AST/SGOT 19 U/L (<34); BILIRUBIN,TOTAL 0.4 MG/DL (0.3-1.2); BLOOD UREA NITROGEN 12 MG/DL (9-23); CALCIUM LEVEL 9.2 MG/DL (8.5-10.1); CARBON DIOXIDE LEVEL 29 MMOL/L (20-31); CHLORIDE LEVEL 107 MMOL/L (98-107); CHOLESTEROL LEVEL 179 MG/DL (<200); CHOLESTEROL RISK RATIO 5.79 (<5); CREATININE FOR GFR 0.81 MG/DL (0.55-1.30); GLOMERULAR FILTRATION RATE > 60.0 (>60); GLUCOSE, FASTING 83 MG/DL (60-100); HDL CHOLESTEROL 30.9 MG/DL (>40); LDL CHOLESTEROL 99.1 MG/DL (<100); NON-HDL-C 148 MG/DL; POTASSIUM SERUM 4.2 MMOL/L (3.5-5.1); SODIUM LEVEL 140 MMOL/L (136-145); TRIGLYCERIDES LEVEL 245 MG/DL (<150)
[2022-09-06 13:04] LABS: FREE T4 0.93 NG/DL (0.89-1.76); THYROGLOBULIN ANTIBODY < 15.0 U/ML (<60.0); THYROID STIMULATING HORMONE 1.183 uIU/ML (0.55-4.78)
== END ==
LOC: M SFHCCLAY 08:53
PROVIDERS: ATTEND Family Medicine
DX: Z00.00 Encounter for general adult medical examination without abnormal findings (principal); K52.81 Eosinophilic gastritis or gastroenteritis

== ENCOUNTER → 2022-09-24 | Outpatient (CLI) | payer OTHER | LOC: M RAD 14:20 | PROVIDERS: ATTEND Family Medicine | DX: E04.9 Nontoxic goiter, unspecified (principal) ==

== ENCOUNTER → 2025-04-12 | Outpatient (REF) | payer OTHER ==
[2025-04-12 12:54] LABS: PLATELET COUNT, AUTOMATED 176 10^3/uL (150-450)
[2025-04-12 13:11] LABS: ESTIMATED AVERAGE GLUCOSE 91.0 MG/DL (60-110)
== END ==
LOC: M SFHCCLAY 08:07
PROVIDERS: ATTEND Physician Assistant
DX: Z00.00 Encounter for general adult medical examination without abnormal findings (principal); F41.9 Anxiety disorder, unspecified; R51.9 Headache, unspecified

== ENCOUNTER → 2025-04-22 | Outpatient (REF) | payer OTHER ==
[2025-04-22 13:30] LABS: ALT/SGPT 20 U/L (7.0-40); AST/SGOT 24 U/L (<34); CALCIUM LEVEL 9.2 MG/DL (8.5-10.1); CARBON DIOXIDE LEVEL 28 MMOL/L (20-31); CHLORIDE LEVEL 105 MMOL/L (98-107); CHOLESTEROL LEVEL 165 MG/DL (<200); CHOLESTEROL RISK RATIO 4.36 (<5); CREATININE FOR GFR 0.79 MG/DL (0.55-1.30); GLOMERULAR FILTRATION RATE > 90.0 (>60); LDL CHOLESTEROL 106.0 MG/DL (<100); NON-HDL-C 127.2 MG/DL; POTASSIUM SERUM 4.0 MMOL/L (3.5-5.1); SODIUM LEVEL 143 MMOL/L (136-145); TRIGLYCERIDES LEVEL 106 MG/DL (<150)
[2025-04-22 13:32] LABS: FREE T4 1.10 NG/DL (0.89-1.76)
== END ==
LOC: M LABDRAWC 12:32
PROVIDERS: ATTEND Physician Assistant
DX: Z00.00 Encounter for general adult medical examination without abnormal findings (principal); F41.9 Anxiety disorder, unspecified; R51.9 Headache, unspecified

== ENCOUNTER → 2025-06-16 | Outpatient (CLI) | payer OTHER | LOC: M RAD 11:28 | PROVIDERS: ATTEND Physician Assistant | DX: R51.9 Headache, unspecified (principal); R59.0 Localized enlarged lymph nodes ==